=== PATIENT | female | born 1950 | race Caucasian/White ===

== ENCOUNTER → 2016-05-24 | Day surgery (SDC) | payer MEDICARE ==
[~2016-05-24] MED LIST: ALLERGY RELIEF10 M2 PO; ASPIRIN PO; ATENOLOL PO; ATENOLOL50 MG PO; CADUET 10 MG/101 TAB PO; CELECOXIB200 M1 PO; CYMBALTA PO; DICLOFENAC PO; FUROSEMIDE40 MG PO; GABAPENTIN300 MG PO; HYDROCODON-ACE1 EAC7 PO; KEFLEX PO; LAMISIL PO; LASIX PO; LIPITOR20 MG PO; LISINOPRIL-HCTZ1 T15 PO; LISINOPRIL20 MG PO; LYRICA PO; METFORMIN HCL500 M1 PO; METFORMIN PO; MICRO-K PO; MOBIC15 MG PO; NORVASC PO; NORVASC10 MG PO; OXAPROZIN600 MG PO; RELAFEN PO
--- NOTE | ~2016-05-24 | OR ---
Unit #: [id number] #: [id number] Patient: MISAEL LING [id number] [address] [address] [id number] O MR#: [id number] NAME: MISAEL LING ROOM: Date of Procedure: 05/24/2016 Admission Date: 05/24/2016 Surgeon: Freddy Conrad M.D. : 1950 Attending Physician: Freddy Conrad M.D. Primary Care Physician: Crow Huggins M.D. SURGERY CENTER OPERATIVE NOTE PROCEDURE PERFORMED Lumbar epidural steroid injection under x-ray guided needle placement with provider administered conscious sedation. PREOPERATIVE DIAGNOSES 1. Acute lumbar radiculitis. 2. Chronic lumbar radicular pain. 3. Herniated disk, multiple levels. 4. Degenerative joint disease, lumbosacral spine. 5. Degenerative disk disease, lumbosacral spine. INDICATIONS FOR PROCEDURE The patient presents today with a longstanding history of chronic lumbar radicular pain secondary to her underlying degenerative processes. She is generally fairly well managed medically with ongoing continuous conservative measures, however, she does occasionally experience exacerbations, which breakthrough this ongoing conservative measures and requires interventional pain management for relief. She presents today with just such exacerbation. After discussing risks and benefits of proceeding today with a lumbar approach epidural steroid injection, the patient agreed this would be the appropriate course of action. We also discussed return to this clinic on 08/30/2016, at which point, she will have a dual needle access lumbar epidural steroid injection. DESCRIPTION OF PROCEDURE Following these discussions, the patient was taken to the operating room, where she was prepped and draped in a sterile manner. Standard monitors were applied. She was sedated with 2 mg of IV Versed and lumbar epidural space was accessed at the L4-L5 level using loss of resistance technique and x-ray guidance. Needle placement was confirmed with the injection of 2 mL of Omnipaque. Approximately 80% of the dye was in the superior direction. Following successful needle placement confirmation, which require total x-ray time of 8 seconds, the patient received an injectate containing 4 mL of normal saline and 80 mg of methylprednisolone. She tolerated this procedure well. She was discharged home with followup instructions, which include return to this clinic as described above. Dictated by... Cheyenne Agarwal/juan manuel Unit #: [id number] #: [id number] Patient: MISAEL LING TD: 05/25/2016 04:01 JOB #: [id number] CC: Mario Torres M.D. SURGERY CENTER OPERATIVE NOTE X Kleber Conrad MD PROCEDURE OPERATIVE NOTE
== END | disposition home or self-care (01) ==
LOC: CCSC 10:36
DX: G89.29 Other chronic pain (principal); M51.16 Intervertebral disc disorders with radiculopathy, lumbar region; Z87.01 Personal history of pneumonia (recurrent)
CPT/HCPCS: J1040; J2250

== ENCOUNTER 2016-08-08 20:43 | Emergency (ER) | payer MEDICARE ==
--- NOTE | ~2016-08-08 | CR156 ---
[facility] A Service of [facility] & [facility] RADIOLOGY TEXT RESULTS PATIENT: MISAEL LING LOCATION: [facility] : [birth year] UNIT #: [id number] AGE: [address]: Eliud Stoddard MD SEX: F ORDER DR: [id number] [facility] [address] [place], [place] [address] [id number] MR#: [id number] Acc #: [id number] NAME: MISAEL LING : 1950 SEX: F STUDY DATE/TIME: 08/09/2016 0:46 UNIT: [facility] ROOM: STUDY DESCRIPTION: CR Humerus Min 2 View Lt Attending Physician: Eliud Stoddard M.D. Ordering Physician: Eliud Stoddard M.D. Primary Care Physician: Crow Huggins M.D. MEDICAL IMAGING REPORT This report is preliminary unless electronic signature is present EXAM Left humerus INDICATIONS Left shoulder pain for 1 week. FINDINGS 2 views of the left humerus compared to left shoulder obtained the same day. No acute fracture or dislocation. IMPRESSION No acute findings. Dictated by... Elvis Schwartz M.D. THIS IS AN ELECTRONICALLY VERIFIED REPORT Elvis Schwartz M.D. at 08/09/2016 4:04 AM ILSA/haja TD: 08/09/2016 04:01 JOB #: [id number] MEDICAL IMAGING REPORT Page 1 of 1 COPY
--- NOTE | ~2016-08-08 | CR229 ---
[facility] A Service of [facility] & [facility] RADIOLOGY TEXT RESULTS PATIENT: MISAEL LING LOCATION: [facility] : 46 UNIT #: [id number] AGE: [address]: Eliud Stoddard MD SEX: F ORDER DR: [id number] [facility] [address] [place], [place] [address] [id number] E MR#: [id number] Acc #: [id number] NAME: MISAEL LING : 1950 SEX: F STUDY DATE/TIME: 08/09/2016 0:47 UNIT: [facility] ROOM: STUDY DESCRIPTION: CR Shoulder Min 2 View Lt Attending Physician: Eliud Stoddard M.D. Ordering Physician: Eliud Stoddard M.D. Primary Care Physician: Crow Huggins M.D. MEDICAL IMAGING REPORT This report is preliminary unless electronic signature is present EXAM Left shoulder INDICATION Left shoulder pain for 1 week. FINDINGS 3 views of the left shoulder without comparison. There is no acute fracture or dislocation. Glenohumeral and acromioclavicular articulations are within normal limits. IMPRESSION No acute findings. Dictated by... Elvis Schwartz M.D. THIS IS AN ELECTRONICALLY VERIFIED REPORT Elvis Schwartz M.D. at 08/09/2016 4:03 AM ILSA/juanita TD: 08/09/2016 03:53 JOB #: [id number] MEDICAL IMAGING REPORT Page 1 of 1 COPY
== END 2016-08-09 01:23 | disposition home or self-care (01) ==
LOC: CED 20:43
DX: S46.812A Strain of other muscles, fascia and tendons at shoulder and upper arm level, left arm, initial encounter (principal); E11.9 Type 2 diabetes mellitus without complications; I10 Essential (primary) hypertension; Z79.84 Long term (current) use of oral hypoglycemic drugs; Z79.899 Other long term (current) drug therapy; X58.XXXA Exposure to other specified factors, initial encounter; Y93.89 Activity, other specified; Y92.9 Unspecified place or not applicable
CPT/HCPCS: 73030; 73060; 99284